=== PATIENT | male | born 1945 | race Caucasian/White ===

== ENCOUNTER 2020-06-08 05:28 | Inpatient (IN) ==
--- NOTE | 2020-06-04 09:01 | Anesthesiology Consultation ---
Date of Service June 04, 2020 Assessment & Plan (1) Encounter for pre-operative examination: - COVID screening: Per assessment on 05/14: Travel screen negative, no known COVID-19 positive contacts or current COVID-19 related symptoms. Surgeon arranged preop COVID testing (done 06/02- negative). - Check coags AM DOS - ASA/warfarin instructions per surgeon/prescriber Chart Review Chart Review: Acceptable Risk for Surgery and Patient NOT seen in Pre Admission Testing History Surgery Operation Date: 06/08/20 07:00 Proposed Procedures p Right Open Inguinal Hernia Repair - Meet Lloyd MD, FACS Height/Weight Height: 5 ft 10 in Weight: 117.934 kg Allergies Allergy/AdvReac Type Severity Reaction Status Date / Time No Known Allergies Allergy Verified 05/14/20 12:20 Medications Home Medications Medication Instructions Recorded Confirmed Last Taken aspirin 81 mg tablet,delayed 81 mg PO 4XWK 02/11/20 05/14/20 Unknown release calcium carbonate 600 mg (1,500 2 cap PO QAM cap 02/11/20 05/14/20 Unknown mg)-vitamin D3 500 unit capsule levothyroxine 137 mcg tablet 137 mcg PO QAM 02/11/20 05/14/20 Unknown warfarin 5 mg tablet 10 mg PO WK 02/11/20 05/14/20 Unknown cholecalciferol (vitamin D3) 100 mcg PO QAM 05/14/20 05/14/20 Unknown [Vitamin D3] warfarin [Jantoven] 7.5 mg PO 6XWK 05/14/20 05/14/20 Unknown Past Medical History Medical History Arthritis 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 Grandmother (Paternal) Cancer Brother Diabetes Heart disease Hypertension Factor 5 Leiden mutation, heterozygous Daughter Factor 5 Leiden mutation, heterozygous Other Deep vein thrombosis Thyroid cancer Past Surgical History Surgical History History of cataract surgery R/L History of colonoscopy History of esophagogastroduodenoscopy (EGD) History of tonsillectomy History of tooth extraction History of total right hip arthroplasty right x2 Hx of thyroidectomy Hx of vasectomy Social History Smoking Status: Never smoker Do You Dip or Chew Tobacco: No Hx Alcohol Use: No Hx Substance Use: No substance use type: does not use Testing Laboratory Results 06/02/20 WBC 7.3 H/H 15.3/45.2 PLATELETS 214 SODIUM 142 POTASSIUM 4.0 CHLORIDE 112 CO2 25 BUN 23 CREATININE 0.9 GLUCOSE 119 Electrocardiogram Date: 04/29/20 Rhythm with sinus arrhythmia at 60 bpm. No significant change compared to 05/09/2011 per reconditioner review.
[2020-06-08] MEDS ORDERED: LR 15ML/HR IV SCH (06:00)
[2020-06-08] MEDS ORDERED: ceFAZolin 2000MG 2,000 MG/15 ML SYR IV SCH (06:00)
[2020-06-08 06:17] LABS: INR 1.1 (0.9-1.1); Partial Thromboplastin Time 26.5 Seconds (21.0-31.0); Prothrombin Time 10.8 Seconds (9.0-12.0)
[2020-06-08] MEDS ORDERED: ACETAMINOPHEN 1000 MG/100 ML IV IV ONE (06:38)
[2020-06-08] MEDS ORDERED: SUGAMMADEX SODIUM 200 MG/2 ML VIAL IV ONE ×2 (06:39→07:19)
[2020-06-08] MEDS ORDERED: GLYCOPYRROLATE 0.2 MG/ML VIAL ONE (06:42)
[2020-06-08] MEDS ORDERED: NEOSTIGMINE METHYLSULFATE 5 MG/5 ML SYR ONE (06:42)
[2020-06-08] MEDS ORDERED: SUCCINYLCHOLINE CHLORIDE 20 MG/ML 10 ML VIAL IV ONE (06:42)
[2020-06-08] MEDS ORDERED: PROPOFOL IV EMULSION 10 MG/ML 20 ML VIAL IV ONE (06:42)
[2020-06-08] MEDS ORDERED: PHENYLEPHRINE HCL 10 MG/ML VIAL ONE (06:42)
[2020-06-08] MEDS ORDERED: ePHEDrine sulfate 50 MG/ML AMP ONE (06:42)
[2020-06-08] MEDS ORDERED: ONDANSETRON INJ 2 MG/ML 2 ML VIAL ONE (06:42)
[2020-06-08] MEDS ORDERED: LIDOCAINE HCL 2% 2 ML VIAL/AMP(20MG/ML) INFIL ONE (06:42)
[2020-06-08] MEDS ORDERED: DEXAMETHASONE SOD INJ 4 MG/ML VIAL ONE (06:42)
[2020-06-08] MEDS ORDERED: fentaNYL citrate 100 MCG/2 ML VIAL ONE ×2 (06:43→08:13)
[2020-06-08] MEDS ORDERED: MIDAZOLAM HCL 1 MG/ML 2ML VIAL ONE (06:43)
[2020-06-08] MEDS ORDERED: BUPIVACAINE 0.5 % 5 MG/1 ML MPF 30ML VIAL ONE (06:49)
[2020-06-08] MEDS ORDERED: SUCCINYLCHOLINE 100MG/5ML SYR IV ONE (07:19)
[2020-06-08] MEDS ORDERED: ROCURONIUM BROMIDE 10 MG/ML 5 ML VIAL IV ONE ×2 (07:34→07:43)
[2020-06-08] MEDS ORDERED: SODIUM CHLORIDE 0.9% INJ 10 ML VIAL ONE (07:41)
[2020-06-08] MEDS ORDERED: ePHEDrine sulfate 50 MG/ML AMP IV PRN (07:55)
[2020-06-08] MEDS ORDERED: fentaNYL citrate 100 MCG/2 ML VIAL IV PRN (07:55)
[2020-06-08] MEDS ORDERED: HYDROmorphone INJ 1 MG/ML SYRINGE IV PRN (07:55)
[2020-06-08] MEDS ORDERED: NALOXONE HCL 0.4 MG/1 ML VIAL/CARP IV PRN (07:55)
[2020-06-08] MEDS ORDERED: ATROPINE SULFATE 0.1 MG/ML 10ML SYR IV PRN (07:55)
[2020-06-08] MEDS ORDERED: FLUMAZENIL 0.1 MG/1 ML 10 ML VIAL IV PRN (07:55)
[2020-06-08] MEDS ORDERED: LABETALOL HCL IV 5 MG/ML 20ML IV PRN (07:55)
[2020-06-08] MEDS ORDERED: ONDANSETRON INJ 2 MG/ML 2 ML VIAL IV PRN ×2 (07:55→09:45)
[2020-06-08] MEDS ORDERED: PROMETHAZINE HCL 12.5 MG in SODIUM CHLORIDE 0.9% 50 ML IV PRN ×2 (07:55→09:45)
[2020-06-08] MEDS ORDERED: METOCLOPRAMIDE HCL INJ 5 MG/ML 2 ML VIAL ONE (08:02)
[2020-06-08] MEDS ORDERED: KETOROLAC 30 MG/ML VIAL ONE (08:23)
[2020-06-08] MEDS ORDERED: ACETAMINOPHEN 1,000 MG/100 ML VIAL IV ONE (08:26)
--- NOTE | 2020-06-08 08:26 | Post Operative Brief Note ---
PG Immediate Post Op with CF Date of Surgery June 08, 2020 Pre & Post Diagnosis Operation Date: 06/08/20 07:00 Pre-Op Diagnosis: Right Inguinal Hernia Post-Op Diagnosis: Right Inguinal Hernia I identified the patient and participated in the time-out.: Yes Procedure Operation Date: 06/08/20 07:00 Actual Procedures p Right Open Inguinal Hernia Repair(Right) - Meet Lloyd MD, FACS Surgeon Meet Lloyd MD, FACS Coin Rolling Machine Operator Marcela Del Cid Estimated Blood Loss 15 Findings Consistent with Post-Op Diagnosis Specimens Specimen Description: None per surgeon Drains Ryder-Manzano Drain (15 FR ROUND)
--- NOTE | 2020-06-08 09:35 | Anesthesiology Progress Note ---
Date of Service June 08, 2020 Anesthesia Post Procedure Vital Signs Vital Signs: Temp Pulse Pulse Resp BP Pulse Ox 06/08/20 09:20 36.3 C L 63 20 146/83 H 96 06/08/20 09:10 67 17 138/84 96 06/08/20 09:00 64 17 143/90 H 96 06/08/20 08:50 66 22 144/84 H 97 06/08/20 08:44 36.2 C L 72 18 140/85 96 06/08/20 05:59 36.6 C 44 L 18 150/96 H 96 Pain Intensity Right Groin: Pain Intensity: 0 Transfer of Care Handoff Completed per policy Notes Mental Status: alert / awake / arousable Patient Amnestic to Procedure: Yes Nausea / Vomiting: adequately controlled Pain: adequately controlled Airway Patency, RR, SpO2: stable & adequate BP & HR: stable & adequate Hydration State: stable & adequate Anesthetic Complications: no major complications apparent
[2020-06-08] MEDS ORDERED: HYDROCODONE/ACETAMOPHEN 5/325MG TAB PO PRN ×2 (09:45)
[2020-06-08] MEDS ORDERED: MoRPHine SULFATE 2 MG/ML CARP IV PRN (09:45)
[2020-06-08] MEDS ORDERED: ACETAMINOPHEN 325 MG TAB PO PRN (09:45)
[2020-06-08] MEDS ORDERED: PROMETHAZINE HCL 25 MG in SODIUM CHLORIDE 0.9% 50 ML IV PRN (09:45)
[2020-06-08] MEDS: SODIUM CHLORIDE 0.9% 1000ML 1,000 ML IV SCH (10:04)
[2020-06-08 10:50] LABS: Creatinine Clr Calc Pharmacy 83.4 ml/min; Est GFR (African American) 84.1; Est GFR (Non-African American) 72.6
[2020-06-08] MEDS: LEVOTHYROXINE SODIUM 137 MCG TABLET PO SCH (11:05)
[2020-06-08] MEDS: DOCUSATE SODIUM/SENNA 50/8.6MG TAB PO SCH ×2 (11:05→21:01)
[2020-06-08] MEDS: MAGNESIUM HYDROXIDE SUSP 30 ML UDC PO SCH ×2 (11:06→21:01)
--- NOTE | 2020-06-08 14:03 | Operative Report (OR) ---
DATE OF OPERATION: 06/08/2020 NAME OF OPERATION: Open right inguinal hernia repair. PREOPERATIVE DIAGNOSIS: Right inguinal hernia. POSTOPERATIVE DIAGNOSIS: Right inguinal hernia. STAFF SURGEON: Meet Lloyd MD. CARRIAGE OPERATOR: Bertha Del Cid. ANESTHESIA: General. DESCRIPTION OF PROCEDURE: The patient was brought in the operating room and placed on the operating table in supine position. His right lower quadrant was prepped and draped in usual fashion. My medical office receptionist assistant helped with prepping, draping, repair of the hernia and closure of the wound. 0.5% plain Marcaine was used to anesthetize the skin and subcutaneous tissue. Incision made parallel to the inguinal ligament, carrying dissection down through significant adipose tissue, identifying a very large hernia coming through the external ring of the external oblique fibers. External oblique fibers were incised along their length to the external ring, then mobilizing the cord structures with some difficulty because of the patient's morbid obesity. I was able to dissect the cord structures away from the large hernia sac, which was then reduced. I think it was an indirect hernia, although it was difficult to see some of the anatomy because of the size of the site. At this point, a large mesh plug was placed into the area of the defect, then secured to surrounding tissue using 0 silk suture. A large mesh patch was then placed into the floor of the canal around the cord structures, secured to the inguinal ligament and surrounding fascia/muscle using a 2-0 Ethibond suture. The site was irrigated with antibiotic solution and then it was also anesthetized using 0.5% plain Marcaine. External oblique fibers closed over the mesh around the cord structures using 2-0 Ethibond suture. A 15 round Ryder-Manzano drain was placed into the hernia defect and down into the scrotal part of the sac, secured to the skin using 3-0 nylon suture. As a note, the hernia did extend into his scrotum. The subcutaneous tissue was reapproximated using 2-0 plain suture and then the skin reapproximated using 4-0 nylon suture with dressing applied. The patient was transferred to recovery room in stable condition. I attest to the content of the Intraoperative Record and any orders documented therein. Any exception s are noted below.
[2020-06-08] MEDS: ceFAZolin 1000MG 1,000 MG/7.5 ML SYR IV SCH ×2 (15:57→23:07)
[2020-06-09] MEDS: LEVOTHYROXINE SODIUM 137 MCG TABLET PO SCH (05:51)
[2020-06-09] MEDS: SODIUM CHLORIDE 0.9% 1000ML 1,000 ML IV SCH (06:23)
[2020-06-09 07:45] LABS: Creatinine Clr Calc Pharmacy 90.5 ml/min; Est GFR (African American) 92.9; Est GFR (Non-African American) 80.1
[2020-06-09] MEDS: ceFAZolin 1000MG 1,000 MG/7.5 ML SYR IV SCH (07:46)
[2020-06-09] MEDS ORDERED: POLYETHYLENE (MIRALAX) 17 GM PACK PO SCH (09:00)
[2020-06-09] MEDS: MAGNESIUM HYDROXIDE SUSP 30 ML UDC PO SCH (10:30)
[2020-06-09] MEDS: DOCUSATE SODIUM/SENNA 50/8.6MG TAB PO SCH (10:31)
--- NOTE | 2020-06-10 10:23 | Discharge Summary ---
Date of Service June 10, 2020 Principal Diagnosis Right inguinal hernia Discharge Exam awake/alert Gastrointestinal (Abdomen) Inspection/Auscultation: + abdominal surgical incision (c/d/i) and + abdominal surgical drain present (ALEJANDRA in R groin incision) Discharge Data Allergies Allergy/AdvReac Type Severity Reaction Status Date / Time No Known Allergies Allergy Verified 05/14/20 12:20 Consultations 06/08/20 08:29 Consult Hospitalist Routine Procedures Performed Operation Date: 06/08/20 07:00 Actual Procedures p Right Open Inguinal Hernia Repair(Right) - Meet Lloyd MD, FACS Hospital Course (1) H/O right inguinal hernia repair: This is a 74y M who presented to the [facility] on 06/08/20 for elective repair of a right inguinal hernia. On this day Dr. Lloyd performed an open right inguinal hernia repair with mesh in the OR. A ALEJANDRA drain was left in place post operatively. The patient tolerated the procedure well, see op note for full details. Post op the patient's diet was advanced as tolerated, pain remained well controlled with prn pain medications, and he was able to void spontaneously . On POD#1 the patient continued to tolerate a diet, pain controlled, incisions c/d/i, and ALEJANDRA drain serosanguineous. ALEJANDRA drain teaching was provided to the patient. He was deemed stable for discharge to home with plans to follow up in clinic within 1 week. Total Time Total Time Spent Total Time Spent (In Minutes): 10 Discharge Plan Discharge Items Patient Disposition: Home - Self-Care Reason For Visit: Right Inguinal Hernia Discharge Diagnosis: right open inguinal hernia repair Activity: Per Instructions section Activity Comment: light activity for 4 weeks Lifting: No more than 10 pounds Bathing Comment: may shower; no soaking in tubs/pools Exercise/Sports: Wait until after follow-up appointment Exercise Comment: wait 4 weeks Non-emergency contact: Primary Care Provider and Surgeon Call non-emergency contact if: you have any medication questions, your symptoms worsen, your pain is not controlled, your pain is worsening, your pain is concerning for you, you have a fever, your temperature is above 101.5, your wound has increased redness, your wound has increased drainage and your wound pain has increased Follow-up/Referrals: Meet Lloyd MD, FACS [Physician] - 06/18/20 2:00 pm Danni Callaway MD [Primary Care Provider] - 06/15/20 8:20 am Diet: Regular Addtl Attending Provider Instructions: SPECIAL CARE INSTRUCTIONS: * Cover incisions and change daily for comfort/drainage. * Empty drain 2-3 times per day and record. Avoid constipation- * May Use Senokot S and Milk of Magnesium twice daily as directed on the package * May use ibuprofen for pain as tolerated. * Expect some swelling and bruising. May take your warfarin as usual this evening Call your doctor if: * Temperature above 101 degrees * Pain not relieved by pain medicine ordered * There is increased drainage or redness from any incision * You have any unanswered questions or concerns [phone]. FOLLOW UP VISIT: If not already scheduled, please call the office for a follow-up visit. For 06/12/2020 for drain removal for next week- some suture removal OFFICE PHONE NUMBER: Dr. Lloyd Office Pending Studies at Discharge: No Stand-Alone Forms: [facility] [employer] [facility] [facility], Opioid Pain Management Medications and DC Order Prescriptions: New cephalexin 500 mg capsule 500 mg PO TID Qty: 15 RF: 0 hydrocodone-acetaminophen 5-325 mg tablet 1 - 2 tab PO Q6H PRN (Reason: pain) Qty: 20 RF: 0 Continued warfarin 5 mg tablet 10 mg PO WK RF: 0 aspirin 81 mg tablet,delayed release (DR/EC) 81 mg PO 4XWK RF: 0 calcium carbonate-vitamin D3 [Calcium 600 with Vitamin D3] 600 mg(1,500mg) - 500 unit capsule 2 cap PO QAM RF: 0 levothyroxine [Synthroid] 137 mcg tablet 137 mcg PO QAM RF: 0 warfarin [Jantoven] 7.5 mg Tablet 7.5 mg PO 6XWK RF: 0 Vitamin D3 100 mcg (4,000 unit) Capsule 100 mcg PO QAM RF: 0 Discharge Orders: Discharge Order (Routine); Ordered 06/09/20 Ordered By: Meet Downing/Other Patient Handouts: Discharge Instructions Caring for ..., Hernia Repair Surgery Admission Data Admit Date/Time: 06/08/20 08:26 Attending Provider: Meet Lloyd Admit Provider: Meet Lloyd Primary Care Provider: Danni Callaway Other Providers: Kenrick Luke ; Annamarie Serrano ; Emre Ruelas ; Meet Tan ; Jessi Aguilera ; Mla Adams ; Erich Nunez ; Chau Resendez ; Gala Vazquez ; Christina Curtis ; Darius Chavez ; Anat Black ; Lillian Falk ; Danny Lino ; Jai Sanchez ; Ijeoma Forman ; Larry Jack ; Marko Sebastian ; Melissa Ferris ; Aldo Teran ; Emre Vasquez ; Gus Garduno ; Meera Rodriguez ; Kranthi Daniels ; Randall Crooks Other Interventions: Discharge Summary Assessment (RN) Last Done: 06/09/20 11:21 Coding Level of Care Code D/C Day Management <30 mins Diagnoses H/O right inguinal hernia repair Z98.890; Z87.19
--- NOTE | 2020-06-11 02:29 | Discharge Summary (DS) ---
PRINCIPAL DIAGNOSIS: Large right inguinal hernia. PROCEDURES: The patient underwent open right inguinal hernia repair. HISTORY OF PRESENT ILLNESS: The patient is a 74-year-old male with a history of enlarging right inguinal hernia, brought into the hospital on 06/08/2020 where he underwent open right inguinal hernia repair. He had a very large defect. I did place a drain. He was kept overnight, did very well overnight, and was felt stable for discharge home with his drain in place to be followed in the surgical clinic within 1 week.
== END 2020-06-09 12:25 | disposition home or self-care (01) | DRG 352 ==
LOC: ASU 05:28 → 3W 08:26
DX: K40.90 Unilateral inguinal hernia, without obstruction or gangrene, not specified as recurrent; E89.0 Postprocedural hypothyroidism; Z86.718 Personal history of other venous thrombosis and embolism; Z79.01 Long term (current) use of anticoagulants; Z79.890 Hormone replacement therapy; Z79.82 Long term (current) use of aspirin